=== PATIENT | male | born 1950 | race Caucasian/White ===

== ENCOUNTER → 2017-04-18 | Outpatient (CLI) | payer BC ==
--- NOTE | 2017-04-19 16:55 | SLEEP ---
DATE OF STUDY: 04/18/2017 ATTENDING PHYSICIAN: Dr. Huy Gonsales. The patient is 66 years old who weighs 200 pounds with a BMI of 30. The patient's Reading score was 6. Sleep study was performed at [facility]. During the night study, the patient spent 418 minutes in bed and slept for 356 minutes with a sleep efficiency of 85%. Sleep latency was 22 minutes with a REM latency of 149 minutes. Overall, sleep architecture showed increased stage I sleep, normal stage II sleep, normal slow wave and reduced REM sleep. During the night study, the patient had 5 obstructive apneas, 11 mixed apneas and 2 central apneas. There were 15 hypopneas. The patient's apnea hypopnea index was 6 per hour, supine index 8 per hour and a REM index of 14 per hour. Review of nocturnal oximetry study revealed a mean oxygen saturation of 92% with the lowest of 86%. A 7% of time oxygen saturation remained between 80% and 89%. EKG monitoring revealed normal sinus rhythm. No sustained arrhythmias were observed. Average heart rate was 71 beats per minute. PLMS were seen at index of 18 per hour and 3 per hour caused EEG arousals. Due to low AHI, the patient did not met the split night criteria for CPAP initiation. IMPRESSION: 1. Mild sleep apnea-hypopnea syndrome with an apnea-hypopnea index of 6 per hour. 2. Mild nocturnal hypoxia secondary to obstructive sleep apnea. 3. Mild periodic limb movements. RECOMMENDATIONS: 1. The patient has mild sleep apnea. This can be treated initially with weight loss. 2. If the patient continues to have daytime somnolence and the patient's sleep apnea can be treated with either oral appliance or a trial of CPAP titration. 3. Avoid [employer] depressants. 4. Caution regarding driving until symptoms of sleep apnea resolve with the above recommendations. CESAR HOLLIDAY MD DR: BREANNE/dianne JOB#: [id number] / [id number] Huy Gutierrez MTDAmparo
== END | disposition home or self-care (01) ==
LOC: SLPLAB 18:29
PROVIDERS: ATTEND Family Medicine
DX: G47.33 Obstructive sleep apnea (adult) (pediatric) (principal)
CPT/HCPCS: 95810